=== PATIENT | female | born 1950 | race Caucasian/White ===

== ENCOUNTER → 2016-12-14 | Outpatient (CLI) | payer MEDICARE, BC ==
[~2016-12-14] VITALS: Ht 165.1 cm; Wt 121.6 kg
[~2016-12-14] MED LIST: HYDR12CA PO; IRBE300T10 PO; NS 1,000 ML IV ONE; OSTETAB4 PO; PROPOFOL 200 MG/20 ML VIAL As Ordered ONE; ZANTTAB PO
--- NOTE | 2016-12-14 13:21 | ROOR ---
Patient Name: Aubrie Dueñas Procedure Date: 12/14/2016 1:00 PM Date of : 1950 Age: 66 Room: [facility] Gender: Female Note Status: Finalized Procedure: Total Colonoscopy to Cecum + Biopsy Polypectomy Indications: Colon cancer screening in patient at increased risk: Colorectal cancer in father, High risk colon cancer surveillance: Personal history of colonic polyps Providers: Hang Reeder MD Referring MD: Angus Rizvi MD Requesting Provider: Medicines: Monitored Anesthesia Care Complications: No immediate complications. Procedure: Pre-Anesthesia Assessment: - The heart rate, respiratory rate, oxygen saturations, blood pressure, adequacy of pulmonary ventilation, and response to care were monitored throughout the procedure. The Colonoscope was introduced through the anus and advanced to the cecum, identified by appendiceal orifice and ileocecal valve. The colonoscopy was performed without difficulty. The patient tolerated the procedure well. The quality of the bowel preparation was excellent. Findings: The perianal and digital rectal examinations were normal. Non-bleeding internal hemorrhoids were found during retroflexion. The hemorrhoids were small and Grade I (internal hemorrhoids that do not prolapse). Two sessile polyps were found in the rectum. The polyps were diminutive in size. These polyps were removed with a jumbo cold forceps. Resection and retrieval were complete. The exam was otherwise without abnormality on direct and retroflexion views. Impression: - Non-bleeding internal hemorrhoids. - Two diminutive polyps in the rectum, removed with a jumbo cold forceps. Resected and retrieved. - The examination was otherwise normal on direct and retroflexion views. - The exam was otherwise normal to the cecum. Recommendation: - Patient has a contact number available for emergencies. The signs and symptoms of potential delayed complications were discussed with the patient. Return to normal activities tomorrow. Written discharge instructions were provided to the patient. - High fiber diet. - Discharge patient to home. - Continue present medications. - Await pathology results. - Telephone GI clinic for pathology results in 1 week. - Repeat colonoscopy in 5 years for surveillance based on pathology results. - Return to referring physician. - Check Portal Online for Path Results.([email or web address]) - The findings and recommendations were discussed with the patient's family. Hang Reeder MD Hang Reeder MD 12/14/2016 1:20:50 PM This report has been signed electronically. Number of Addenda: 0 Note Initiated On: 12/14/2016 1:00 PM Estimated Blood Loss: Estimated blood loss: none.
[2016-12-14 13:45] VITALS: BP 115/89
== END | disposition home or self-care (01) ==
LOC: M OPP 12:08
PROVIDERS: ATTEND Internal Medicine Gastroenterology
DX: Z12.11 Encounter for screening for malignant neoplasm of colon (principal); D12.8 Benign neoplasm of rectum; K64.0 First degree hemorrhoids; Z86.010 Personal history of colon polyps; Z80.0 Family history of malignant neoplasm of digestive organs; I10 Essential (primary) hypertension; K57.92 Diverticulitis of intestine, part unspecified, without perforation or abscess without bleeding; R12 Heartburn; R06.02 Shortness of breath; F32.9 Major depressive disorder, single episode, unspecified; E66.9 Obesity, unspecified; Z78.0 Asymptomatic menopausal state; G47.30 Sleep apnea, unspecified; R06.83 Snoring; H26.9 Unspecified cataract; F17.210 Nicotine dependence, cigarettes, uncomplicated; Z88.1 Allergy status to other antibiotic agents; Z88.5 Allergy status to narcotic agent; Z79.899 Other long term (current) drug therapy

== ENCOUNTER → 2020-10-28 | Outpatient (REF) | payer MEDICARE, BC ==
[~2020-10-28] MED LIST changes: -IRBE300T10 PO; +IRBE300T7 PO; -NS 1,000 ML IV ONE; -PROPOFOL 200 MG/20 ML VIAL As Ordered ONE; +ZANT150T40 PO; -ZANTTAB PO
== END ==
LOC: M LAB REF 16:28
PROVIDERS: ATTEND Family Medicine
DX: R35.0 Frequency of micturition (principal)

== ENCOUNTER → 2020-12-09 | Outpatient (CLI) | payer MEDICARE, BC ==
--- NOTE | 2020-12-09 11:00 | REP ---
INDICATION: POST MENOPAUSAL BLEEDING. COMPARISON: 02/20/2013. TECHNIQUE: Transabdominal and transvaginal scanning performed. FINDINGS: Uterine dimensions are 8.3 x 3.7 x 5.2 cm. Endometrial echo is 6 mm in AP dimension and centrally placed. The bladder measures 6.9 x 7.1 x 4.1cm. The ovaries could not be visualized. There is no adnexal mass identified. No free fluid is seen in the cul-de-sac. IMPRESSION: Endometrial thickness is 6 mm, mildly increased. Consider endometrial sampling to rule out hyperplasia or neoplasm. <Electronically signed by Kranthi Melendez > 12/09/20 [id number]
== END ==
LOC: M RAD 10:06
PROVIDERS: ATTEND Obstetrics & Gynecology
DX: N95.0 Postmenopausal bleeding (principal); F17.200 Nicotine dependence, unspecified, uncomplicated; Z91.89 Other specified personal risk factors, not elsewhere classified

== ENCOUNTER → 2021-07-21 | Outpatient (CLI) | payer MEDICARE, BC | LOC: M WHC 13:39 | PROVIDERS: ATTEND Family Medicine | DX: R92.2 Inconclusive mammogram (principal) ==

== ENCOUNTER → 2021-07-27 | Outpatient (CLI) | payer MEDICARE, BC | LOC: M WHC 10:04 | PROVIDERS: ATTEND Family Medicine | DX: Z12.31 Encounter for screening mammogram for malignant neoplasm of breast (principal); N64.89 Other specified disorders of breast | CPT/HCPCS: 76641; 77066; G0279 ==

== ENCOUNTER 2022-12-05 09:04 | Day surgery (SDC) | payer MEDICARE, BC ==
[~2022-12-05] VITALS: Ht 165.1 cm; Wt 104.3 kg
[~2022-12-05 09:04] MED LIST changes: +FAMO1TAB11 PO; +IRBE150T7 PO; +NS 1,000 ML IV ONE
[2022-12-05] MEDS ORDERED: propofoL 200 MG/20 ML VIAL As Ordered ONE ×2 (10:05→10:10)
[2022-12-05 10:50] VITALS: BP 124/59
== END 2022-12-05 10:55 | disposition home or self-care (01) ==
LOC: M OPP 09:04
PROVIDERS: ATTEND Internal Medicine Gastroenterology
DX: Z12.11 Encounter for screening for malignant neoplasm of colon (principal); Z86.010 Personal history of colon polyps; Z80.0 Family history of malignant neoplasm of digestive organs; K64.0 First degree hemorrhoids; K29.50 Unspecified chronic gastritis without bleeding; K44.9 Diaphragmatic hernia without obstruction or gangrene; Z87.891 Personal history of nicotine dependence; Z79.899 Other long term (current) drug therapy; Z88.1 Allergy status to other antibiotic agents; Z88.5 Allergy status to narcotic agent
CPT/HCPCS: 43239; 88305; G0105

== ENCOUNTER → 2023-05-22 | Outpatient (CLI) | payer MEDICARE, BC ==
[~2023-05-22] MED LIST changes: -NS 1,000 ML IV ONE
== END ==
LOC: M RAD 12:40
PROVIDERS: ATTEND Family Medicine
DX: F17.210 Nicotine dependence, cigarettes, uncomplicated (principal)

== ENCOUNTER → 2024-04-01 | Outpatient (CLI) | payer MEDICARE, BC ==
[~2024-04-01] MED LIST changes: +IRBE150T27 PO; -IRBE150T7 PO; +IRBE300T25 PO; -IRBE300T7 PO
[2024-04-01 13:41] LABS: MEAN CORPUSCULAR HEMOGLOBIN 30.8 pg (27.0-33.0); MEAN CORPUSCULAR HGB CONC 33.3 g/dl (32.0-36.5); MEAN CORPUSCULAR VOLUME 92.4 fl (80.0-96.0); PLATELET COUNT, AUTOMATED 353 10^3/uL (150-450); RED BLOOD COUNT 4.22 10^6/uL (4.00-5.40)
[2024-04-01 13:47] LABS: ERYTHROCYTE SEDIMENTATION RATE 46 mm/hr (0-30)
[2024-04-01 13:57] LABS: PROTHROMBIN TIME 12.9 SECONDS (12.5-14.5)
[2024-04-01 14:07] LABS: ALBUMIN 3.7 G/DL (3.2-5.2); BILIRUBIN,TOTAL 0.5 MG/DL (0.3-1.2); CALCIUM LEVEL 9.2 MG/DL (8.3-10.6); CREATININE FOR GFR 1.16 MG/DL (0.55-1.30); GLOMERULAR FILTRATION RATE 48.5 (>39); POTASSIUM SERUM 3.7 MMOL/L (3.5-5.1); TOTAL PROTEIN 7.6 G/DL (5.7-8.2)
== END ==
LOC: M RAD 13:04
PROVIDERS: ATTEND Orthopaedic Surgery
DX: Z01.818 Encounter for other preprocedural examination (principal); M17.11 Unilateral primary osteoarthritis, right knee; Z79.01 Long term (current) use of anticoagulants

== ENCOUNTER → 2024-06-10 | Outpatient (CLI) | payer MEDICARE, BC | LOC: M RAD 14:12 | PROVIDERS: ATTEND Orthopaedic Surgery | DX: M25.561 Pain in right knee (principal) ==

== ENCOUNTER → 2025-02-11 | Outpatient (REF) | payer MEDICARE, BC ==
[2025-02-11 19:18] LABS: BASO # 0.0 10^3/uL (0.0-0.2); BASO % 0.7 % (0.0-1.0); EOS # 0.1 10^3/uL (0.0-0.5); EOS % 2.2 % (0.0-3.0); LYMPH # 1.0 10^3/uL (1.5-5.0); LYMPH % 20.7 % (24.0-44.0); MONO # 0.5 10^3/uL (0.0-0.8); MONO % 10.2 % (2.0-8.0); NEUTROPHILS # 3.0 10^3/uL (1.5-8.5); NEUTROPHILS % 66.0 % (36.0-66.0); PLATELET COUNT, AUTOMATED 321 10^3/uL (150-450)
[2025-02-11 19:21] LABS: ALT/SGPT 23.0 U/L (7.0-40); AST/SGOT 21.0 U/L (<34); CALCIUM LEVEL 9.6 MG/DL (8.3-10.6); CARBON DIOXIDE LEVEL 26.0 MMOL/L (20-31); CHLORIDE LEVEL 101.0 MMOL/L (98-107); CHOLESTEROL LEVEL 208.0 MG/DL (<200); CHOLESTEROL RISK RATIO 4.4 (<5); CREATININE FOR GFR 1.31 MG/DL (0.55-1.30); GLOMERULAR FILTRATION RATE 42.5 (>39); LDL CHOLESTEROL 130.0 MG/DL (<100); NON-HDL-C 160.8 MG/DL; POTASSIUM SERUM 4.4 MMOL/L (3.5-5.1); SODIUM LEVEL 139.0 MMOL/L (136-145); TRIGLYCERIDES LEVEL 154.0 MG/DL (<150)
== END ==
LOC: M LABDRWAD 17:45
PROVIDERS: ATTEND Family Medicine
DX: N18.30 Chronic kidney disease, stage 3 unspecified (principal); E78.00 Pure hypercholesterolemia, unspecified; E07.9 Disorder of thyroid, unspecified

== ENCOUNTER → 2025-07-02 | Outpatient (REF) | payer MEDICARE, BC ==
[~2025-07-02] MED LIST changes: +HYDR12.510 PO; -HYDR12CA PO
[2025-07-02 15:23] LABS: BASO # 0.0 10^3/uL (0.0-0.2); BASO % 0.7 % (0.0-1.0); EOS # 0.1 10^3/uL (0.0-0.5); EOS % 1.7 % (0.0-3.0); LYMPH # 1.3 10^3/uL (1.5-5.0); LYMPH % 23.1 % (24.0-44.0); MONO # 0.5 10^3/uL (0.0-0.8); MONO % 9.8 % (2.0-8.0); NEUTROPHILS # 3.5 10^3/uL (1.5-8.5); NEUTROPHILS % 64.5 % (36.0-66.0); PLATELET COUNT, AUTOMATED 339 10^3/uL (150-450)
[2025-07-02 15:53] LABS: ALT/SGPT 22.0 U/L (7.0-40); AST/SGOT 21.0 U/L (<34); CALCIUM LEVEL 8.8 MG/DL (8.3-10.6); CARBON DIOXIDE LEVEL 26.0 MMOL/L (20-31); CHLORIDE LEVEL 102.0 MMOL/L (98-107); CHOLESTEROL LEVEL 198.0 MG/DL (<200); CHOLESTEROL RISK RATIO 3.82 (<5); CREATININE FOR GFR 1.15 MG/DL (0.55-1.30); GLOMERULAR FILTRATION RATE 49.4 (>39); LDL CHOLESTEROL 115.9 MG/DL (<100); NON-HDL-C 146.3 MG/DL; POTASSIUM SERUM 4.2 MMOL/L (3.5-5.1); SODIUM LEVEL 140.0 MMOL/L (136-145); TRIGLYCERIDES LEVEL 152.0 MG/DL (<150)
== END ==
LOC: M LABDRWAD 13:11
PROVIDERS: ATTEND Family Medicine
DX: N18.30 Chronic kidney disease, stage 3 unspecified (principal); M15.9 Polyosteoarthritis, unspecified; E78.00 Pure hypercholesterolemia, unspecified